=== PATIENT | female | born 1990 | race Caucasian/White ===

== ENCOUNTER 2017-09-01 22:23 | Emergency (ER) | payer SELFPAY ==
[~2017-09-01 22:23] MED LIST: Iopamidol 370 76% 100 ML VIAL ONE; Sodium Chloride 0.9% 1,000 ML BAG ONE
[2017-09-01] MEDS ORDERED: Ondansetron HCl/PF 4 MG/2 ML Vial ONE (22:59)
[2017-09-01 23:17] LABS: Anion Gap 15 mmol/L (10-20); BUN (Urea Nitrogen) 10 mg/dL (7.0-18.7); Calc. Creatinine Clearance 0 mL/min (70-130); Calcium 9.1 mg/dL (7.8-10.44); Carbon Dioxide 24 mmol/L (22-29); Chloride 101 mmol/L (98-107); Estimated GFR-MDRD 90; Glucose 109 mg/dL (70-105); Potassium 3.7 mmol/L (3.5-5.1); Sodium 136 mmol/L (136-145)
[2017-09-01] MEDS ORDERED: Fentanyl 100 MCG/2 ML VIAL ONE (23:17)
[2017-09-01 23:18] LABS: Band 2 % (5-11); Eosinophils 1 % (0-10); Hemoglobin 12.3 g/dL (12.0-16.0); Lymphocytes 8 % (21-51); MDiff Complete? YES; Mean Corpuscular HGB CONC 33.8 g/dL (32.0-36.0); Mean Corpuscular Hemoglobin 27.7 pg (27.0-31.0); Mean Corpuscular Volume 81.8 fl (81.0-99.0); Mean Platelet Volume 6.4 fL (7.4-10.4); Monocytes 3 % (0-10); Neutrophil 84 % (42-75); PLT Morphology Comment Appears Adequate; Platelet Count 169 thou/uL (130-400); RBC Distribution Width 12.9 % (11.5-14.5); RBC Morphology Normal; Reactive Lymphocytes 2 % (0-10); Red Blood Cell (RBC) Count 4.46 mill/uL (4.20-5.40); White Blood Cell (WBC) Count 10.5 thou/uL (4.8-10.8)
[2017-09-01] MEDS ORDERED: Acetaminophen 500 MG TAB ONE (23:18)
[2017-09-02 00:43] LABS: Bilirubin Negative (Negative); Blood, Urine Moderate (Negative); Glucose, Urine (Dipstick) Negative (Negative); Leukocyte Trace (Negative); Nitrite Positive (Negative); Protein, Urine (Dipstick) 100 mg/dL (Neg-Trace)
[2017-09-02 00:46] LABS: Clarity Hazy (Clear); Pregnancy Test - Urine (BHCG) Negative (Negative); Pregu Control Background? CLEAR/WHITE (CLR/WHITE); Pregu Control Bar Appear? YES (CONTROL BAR)
[2017-09-02 00:56] LABS: Bacteria/HPF 3+ HPF (None Seen)
[2017-09-02] MEDS ORDERED: Promethazine HCl 25 MG/ML VIAL ONE (01:28)
[2017-09-02] MEDS ORDERED: Fentanyl 100 MCG/2 ML VIAL ONE (01:28)
--- NOTE | 2017-09-02 06:56 | CT ---
CT ABDOMEN AND PELVIS WITH CONTRAST: INDICATIONS: Right abdominal pain. Fever. FINDINGS: NO significant opacification at the imaged lung bases. There is probable mild atelectasis. A normal caliber appendix is seen at the right lower quadrant. There is heterogeneity of the uterus and adne xa with prominent volume. This may relate to physiologic changes in the correct clinical context. T he small bowel is normal in caliber. There is multifocal abnormal heterogeneous enhancement with red uced attenuation of the right kidney, which indicates multifocal pyelonephritis/lobar nephronia. A s light degree of right-sided urothelial thickening/enhancement indicates associated findings from an a scending urinary tract infection. No pneumoperitoneum. The abdominal aorta is normal in caliber. T he spleen is borderline enlarged without a focal lesion. Otherwise, no acute process evident. IMPRESSION: 1. Findings most consistent with pyelonephritis/lobar nephronia of the right kidney with associated urothelial thickening and enhancement of the right ureter, compatible with an ascending urinary tract infection. Recommend correlation with urinary laboratory values. There are focal areas of hypodens ity, for which a component of developing small renal abscess formation cannot be excluded. Recommend continued imaging surveillance for further assessment. 2. Additional details as described above. POS: [facility]
== END 2017-09-02 03:05 | disposition home or self-care (01) ==
LOC: MADERS 22:23
DX: N12 Tubulo-interstitial nephritis, not specified as acute or chronic (principal)
CPT/HCPCS: 36415; 74177; 80048; 81003; 81015; 81025; 83605; 85025; 96365; 96366; 96367; 96375; 96376; J1956; J2405; J2550; J3010; J3370; J7050

== ENCOUNTER 2019-01-29 23:56 | Emergency (ER) | payer SELFPAY ==
[2019-01-30] MEDS ORDERED: Cephalexin 500 MG CAP ONE (00:26)
[2019-01-30] MEDS ORDERED: Ibuprofen 800 MG TAB ONE (00:26)
== END 2019-01-30 00:30 | disposition home or self-care (01) ==
LOC: MADERS 23:56
DX: K04.7 Periapical abscess without sinus (principal); K02.9 Dental caries, unspecified; K03.81 Cracked tooth; F41.9 Anxiety disorder, unspecified; Z79.899 Other long term (current) drug therapy
CPT/HCPCS: 99283

== ENCOUNTER 2019-04-14 21:51 | Emergency (ER) | payer OTHER ==
[2019-04-14] MEDS ORDERED: Penicillin V Potassium 250 MG TAB ONE (22:11)
== END 2019-04-14 22:15 | disposition home or self-care (01) ==
LOC: MADERS 21:51
DX: K04.7 Periapical abscess without sinus (principal); K02.9 Dental caries, unspecified
CPT/HCPCS: 99283

== ENCOUNTER 2020-10-21 22:14 | Emergency (ER) | payer OTHER ==
[~2020-10-21 22:14] MED LIST changes: -Iopamidol 370 76% 100 ML VIAL ONE
[2020-10-21 23:10] LABS: #Monocytes 0.5 thou/uL (0.11-0.59); %Basophils 0.8 % (0.0-1.0); %Eosinophils 0.6 % (0.0-10.0); %Lymphocytes 35.6 % (21.0-51.0); Hemoglobin 9.4 g/dL (12.0-16.0); Hypochromia SLIGHT = 6-15 cells (100X) (0-5/hpf); MDiff Complete? YES; Mean Corpuscular HGB CONC 28.6 g/dL (32.0-36.0); Mean Corpuscular Hemoglobin 21.4 pg (27.0-31.0); Mean Corpuscular Volume 75.1 fL (78.0-98.0); Mean Platelet Volume 7.7 fL (7.4-10.4); Microcytosis SLIGHT = 6-15 cells (100X) (0-5/hpf); Ovalocytes SLIGHT = 2-5 cells (100X) (0-1/hpf); Platelet Count 281 thou/uL (130-400); Platelet Morphology Comment Appears Adequate; RBC Distribution Width 17.5 % (11.5-14.5); Red Blood Cell (RBC) Count 4.38 mill/uL (4.20-5.40); White Blood Cell (WBC) Count 5.5 thou/uL (4.8-10.8)
[2020-10-21 23:11] LABS: ALT (SGPT) 26 U/L (8-55); AST (SGOT) 26 U/L (5-34); Albumin 4.6 g/dL (3.5-5.0); Alkaline Phosphatase 76 U/L (40-110); Anion Gap 15 mmol/L (10-20); BUN (Urea Nitrogen) 5 mg/dL (7.0-18.7); Bilirubin, Total 0.6 mg/dL (0.2-1.2); Calc. Creatinine Clearance 0 mL/min (70-130); Calcium 9.4 mg/dL (7.8-10.44); Carbon Dioxide 23 mmol/L (22-29); Chloride 107 mmol/L (98-107); Globulin 3.5 g/dL (2.4-3.5); Glucose 86 mg/dL (70-105); Magnesium 1.9 mg/dL (1.6-2.6); Potassium 3.5 mmol/L (3.5-5.1); Protein, Total 8.1 g/dL (6.0-8.3); Sodium 141 mmol/L (136-145)
[2020-10-21 23:28] LABS: Thyroid Stimulating Hormone 1.3606 uIU/mL (0.35-4.94)
[2020-10-21 23:41] LABS: BHCG - Serum Negative (NEGATIVE); Pregs Control Background? CLEAR/WHITE (CLR/WHITE); Pregs Control Bar Appear? YES (CONTROL BAR)
== END 2020-10-21 23:36 | disposition home or self-care (01) ==
LOC: MADERS 22:14
DX: F43.0 Acute stress reaction (principal); F41.9 Anxiety disorder, unspecified; D64.9 Anemia, unspecified; Z79.899 Other long term (current) drug therapy
CPT/HCPCS: 80053; 83735; 84443; 84703; 85025; 99283; J7050

== ENCOUNTER 2020-11-15 21:28 | Emergency (ER) | payer OTHER ==
[2020-11-15] MEDS ORDERED: Sodium Chloride 0.9% 1,000 ML ONE ×2 (21:57→23:36)
[2020-11-15 21:58] LABS: Bilirubin Negative (Negative); Blood, Urine Moderate (Negative); Clarity Clear (Clear); Glucose, Urine (Dipstick) Negative (Negative); Ketone, Urine Negative (Negative); Leukocyte Large (Negative); Nitrite Negative (Negative); Protein, Urine (Dipstick) 100 mg/dL (Neg-Trace); Urobilinogen 0.2 mg/dL (Less than 2)
[2020-11-15 21:59] LABS: Specific Gravity, Urine 1.004 (1.002-1.036); WBC/HPF Greater than 50 HPF (0-3)
[2020-11-15 22:00] LABS: Bacteria/HPF 3+ HPF (None Seen)
[2020-11-15 22:01] LABS: Pregnancy Test - Urine (BHCG) Negative (Negative); Pregu Control Background? CLEAR/WHITE (CLR/WHITE); Pregu Control Bar Appear? YES (CONTROL BAR); Specific Gravity 1.004 (1.002-1.036)
[2020-11-15] MEDS ORDERED: cefTRIAXone\\ROCEPHIN 1 GM VIAL ONE (22:28)
[2020-11-15] MEDS ORDERED: Sodium Chloride 0.9% 100 ML ONE (22:29)
[2020-11-15 22:36] LABS: Band 6 % (5-11); Hemoglobin 10.4 g/dL (12.0-16.0); Hypochromia SLIGHT = 6-15 cells (100X) (0-5/hpf); Large Platelets SLIGHT; Lymphocytes 23 % (21-51); MDiff Complete? YES; Mean Corpuscular HGB CONC 30.3 g/dL (32.0-36.0); Mean Corpuscular Hemoglobin 22.1 pg (27.0-31.0); Mean Corpuscular Volume 73.1 fL (78.0-98.0); Mean Platelet Volume 8.1 fL (7.4-10.4); Microcytosis SLIGHT = 6-15 cells (100X) (0-5/hpf); Monocytes 3 % (0-10); Neutrophil 67 % (42-75); Platelet Count 308 thou/uL (130-400); Platelet Morphology Comment Appears Adequate; RBC Distribution Width 17.7 % (11.5-14.5); White Blood Cell (WBC) Count 13.2 thou/uL (4.8-10.8)
[2020-11-15 22:38] LABS: ALT (SGPT) 17 U/L (8-55); AST (SGOT) 17 U/L (5-34); Albumin 4.3 g/dL (3.5-5.0); Alkaline Phosphatase 71 U/L (40-110); Anion Gap 17 mmol/L (10-20); BUN (Urea Nitrogen) 6 mg/dL (7.0-18.7); Bilirubin, Total 0.8 mg/dL (0.2-1.2); Calc. Creatinine Clearance 0 mL/min (70-130); Calcium 9.2 mg/dL (7.8-10.44); Carbon Dioxide 20 mmol/L (22-29); Chloride 101 mmol/L (98-107); Globulin 3.9 g/dL (2.4-3.5); Glucose 98 mg/dL (70-105); Lipase 21 U/L (8-78); Potassium 3.4 mmol/L (3.5-5.1); Protein, Total 8.2 g/dL (6.0-8.3); Sodium 135 mmol/L (136-145)
[2020-11-15] MEDS ORDERED: Sodium Chloride 0.9% 250 ML 500 ML ONE (23:36)
[2020-11-15] MEDS ORDERED: Vancomycin HCl 750 MG VIAL ONE (23:36)
[2020-11-15] MEDS ORDERED: Prochlorperazine 10 MG/2 ML VIAL ONE (23:56)
[2020-11-15] MEDS ORDERED: Ketorolac Tromethamine 30 MG/ML VIAL ONE (23:56)
[2020-11-16] MEDS ORDERED: Acetaminophen 500 MG TAB ONE (00:43)
[2020-11-16 01:24] LABS: SARS-CoV-2 NAA Rapid Test Not Detected (NotDetected)
== END 2020-11-16 01:01 | disposition short-term general hospital (02) ==
LOC: MADERS 21:28
DX: A41.9 Sepsis, unspecified organism (principal); N10 Acute pyelonephritis; R11.2 Nausea with vomiting, unspecified; Z20.822 Contact with and (suspected) exposure to COVID-19
CPT/HCPCS: 0240U; 74176; 80053; 81003; 81015; 81025; 83605; 83690; 85025; 87077; 87086; 87186; 96365; 96367; 96375; J0696; J0780; J1885; J3370; J3490; J7050

== ENCOUNTER 2021-08-31 13:52 | Outpatient (CLI) | payer OTHER ==
[2021-08-31 14:33] LABS: Amphetamine Detected (NotDetected); Barbiturates Screen Not Detected (NotDetected); Benzodiazepine Screen Not Detected (NotDetected); Cocaine Metabolite Screen Not Detected (NotDetected); Medtox Control Line Valid? VALID (VALID); Methadone Not Detected (NotDetected); Methamphetamine Not Detected (NotDetected); Opiate Screen Not Detected (NotDetected); Oxycodone Screen Not Detected (NotDetected); Phencyclidine (PCP) Not Detected (NotDetected); THC/Cannabinoid Screen Not Detected (NotDetected); Tricyclic Screen Not Detected (NotDetected)
== END 2021-08-31 13:53 | disposition home or self-care (01) ==
LOC: MADLAB 13:52
PROVIDERS: ATTEND Family Medicine
DX: F90.9 Attention-deficit hyperactivity disorder, unspecified type (principal)
CPT/HCPCS: 80306